=== PATIENT | female | born 1945 | race Caucasian/White ===

== ENCOUNTER 2017-08-06 12:03 | Emergency (ER) | payer MEDICARE ==
[~2017-08-06] VITALS: Ht 170.2 cm; Wt 130.0 kg
[~2017-08-06 12:03] MED LIST: AMLO5TAB22 PO; FOLBTAB4 PO; GLIM2TAB PO; LEVO175T2 PO; LISI-363 PO; MEVA40TA PO; NOVO7030P2 SQ; TIMO0.5S29 EACH EYE; VITA100018 PO
[2017-08-06 12:19] VITALS: BP 116/54; PULSE 77; RESP 16; TEMP 98.3; O2SAT 92
[2017-08-06] MEDS ORDERED: SODIUM CHLORIDE 0.9% FLUSH 10 ML FLUSH IV FLUSH PRN (12:30)
[2017-08-06 12:53] LABS: AUTOMATED NEUTROPHIL # 9.3 TH/MM3 (1.8-7.7); BASOPHIL # 0.1 TH/MM3 (0-0.2); BASOPHIL % 0.5 % (0.0-2.0); HEMATOCRIT 32.1 % (35.0-46.0); HEMOGLOBIN 10.7 GM/DL (11.6-15.3); LYMPHOCYTE # 0.7 TH/MM3 (1.0-4.8); MEAN CELL VOLUME 81.9 FL (80.0-100.0); MEAN CORPUSCULAR HEMOGLOBIN 27.3 PG (27.0-34.0); MEAN CORPUSCULAR HGB CONC 33.3 % (32.0-36.0); MEAN PLATELET VOLUME 9.1 FL (7.0-11.0); MONO % 9.2 % (0.0-8.0); NEUT % 84.3 % (16.0-70.0); PLATELET COUNT 157 TH/MM3 (150-450); RED BLOOD COUNT 3.92 MIL/MM3 (4.00-5.30); RED CELL DISTRIBUTION WIDTH 13.4 % (11.6-17.2)
[2017-08-06 13:12] LABS: ALBUMIN 2.8 GM/DL (3.4-5.0); ALT (GPT) 28 U/L (10-53); AST (GOT) 25 U/L (15-37); BICARBONATE 26.2 MEQ/L (21.0-32.0); BLOOD UREA NITROGEN 20 MG/DL (7-18); CALCIUM 8.3 MG/DL (8.5-10.1); CHLORIDE 98 MEQ/L (98-107); CREATININE 1.75 MG/DL (0.50-1.00); GLOMERULAR FILTRATION RATE 29 ML/MIN (>89); GLUCOSE,RANDOM 322 MG/DL (74-106); SODIUM (NA) 131 MEQ/L (136-145)
[2017-08-06 13:13] LABS: ALKALINE PHOSPHATASE 68 U/L (45-117); TOTAL BILIRUBIN ADULT 1.5 MG/DL (0.2-1.0)
--- NOTE | 2017-08-06 13:40 | PD ---
HPI Chief Complaint: Diabetic Time Seen by Provider: 13:07 Travel History International Travel<30 days: No Contact w/Intl Traveler<30days: No Traveled to known affect area: No History of Present Illness HPI Patient is a 72-year-old female presenting to the emergency department from a skilled facility for evaluation of generalized weakness for the last 3 days. Patient states she normally can ambulate without her walker but now she needs to use it. She reports dysuria and hesitancy for the last 3 days as well. Skilled facility since the patient's blood glucose was elevated this morning, she was given her normal insulin, it was reassessed and it was still elevated she was given additional doses of insulin. Patient denies any nausea, vomiting , abdominal pain. She does report a decreased appetite. Symptom onset was gradual, symptom severity is mild to moderate, there are no alleviating factors. Symptoms are not exacerbated by anything. PFSH Past Medical History Cancer: Yes (RIGHT BREAST) Cardiovascular Problems: Yes (MURMUR) High Cholesterol: Yes Diabetes: Yes (INSULIN DEP SLIDING SCALE ) Endocrine: Yes Hepatitis: Yes (HEPATITIS A/ MONONUCLEOSIS AGE 16) Hypertension: Yes Immune Disorder: Yes (PSORIATIC ARTHRITIS ) Musculoskeletal: Yes (PSORIATIC ARTHRITIS ) Neurologic: Yes (VERTIGO) Thyroid Disease: Yes (HYPOTHYROIDISM) Past Surgical History Abdominal Surgery: Yes (CHOLECYSTECTOMY; APPY ) Body Medical Devices: NONE Eye Surgery: Yes (RIGHT CATARACT EXTRACT.) Gynecologic Surgery: Yes (HYSTERECTOMY ) Thoracic Surgery: Yes (LUMPECTOMY RIGHT BREAST (MALIGNANT) ) Social History Tobacco Use: No Substance Use: No Allergies-Medications (Allergen,Severity, Reaction): Coded Allergies: Sulfa (Sulfonamide Antibiotics) (Unverified Allergy, Unknown, UNKNOWN CHILDHOOD REACTION, 08/06/17) celecoxib (Unverified Allergy, Unknown, KIDNEY DAMAGE, 08/06/17) codeine (Unverified Allergy, Unknown, RASH / DIZZINESS, 08/06/17) metformin (Unverified Allergy, Unknown, KIDNEY PROBLEMS, 08/06/17) nitrofurantoin (Unverified Allergy, Unknown, ALL OVER BODY RASH/WHELPS, ) povidone-iodine (Unverified Allergy, Unknown, SKIN BREAKDOWN, 08/06/17) rofecoxib (Unverified Allergy, Unknown, KIDNEY DAMAGE, 08/06/17) Uncoded Allergies: IODINE, TOPICAL (Allergy, Unknown, Rash, 11/29/13) Reported Meds & Prescriptions Reported Meds & Active Scripts Active Reported Vitamin D (Cholecalciferol) 1,000 Unit Tab 1,000 Unit PO DAILY Folbic (Folic Yvzh-Bbwuuhumfc-Lhlcfnwy) Tab 1 Tab PO DAILY Levothyroxine 175 mcg (Levothyroxine Sodium) 175 Mcg Tab 1 Tab PO DAILY Amlodipine Besylate 5 Mg Tab 5 Mg PO HS Lisinopril 20 Mg Tab 20 Mg PO HS Lovastatin 40 Mg Tab 40 Mg PO HS Novolin 70/30 (Insulin Human Isoph/Insulin Regular) 100 Units/Ml Inj 0 SQ DIRECTED PRN Sliding Scale As Directed. Glimepiride 2 Mg Tab 4 Mg PO BID Timolol Maleate 0.5 % Danae 1 Drop EACH EYE DAILY Review of Systems Except as stated in HPI: all other systems reviewed are Neg Cardiovascular: No: Chest Pain or Discomfort Respiratory: No: Shortness of Breath Gastrointestinal: No: Nausea, Vomiting, Abdominal Pain Genitourinary: Positive: Dysuria, Decreased Urinary Output, Hesitancy Neurologic: Positive: Weakness Physical Exam Narrative GENERAL: Overweight, well-developed, alert elderly female. Presenting in no acute distress. SKIN: Warm and dry. HEAD: Atraumatic. Normocephalic. EYES: Pupils equal and round. No scleral icterus. No injection or drainage. ENT: No nasal bleeding or discharge. Mucous membranes pink and moist. NECK: Trachea midline. No JVD. CARDIOVASCULAR: Regular rate and rhythm. 3/6 systolic murmur. RESPIRATORY: No accessory muscle use. Clear to auscultation. Breath sounds equal bilaterally. GASTROINTESTINAL: Abdomen soft, non-tender, nondistended. Hepatic and splenic margins not palpable. MUSCULOSKELETAL: Extremities without clubbing, cyanosis, or edema. No obvious deformities. NEUROLOGICAL: Awake and alert. No obvious cranial nerve deficits. Motor grossly within normal limits. Five out of 5 muscle strength in the arms and legs. Normal speech. PSYCHIATRIC: Appropriate mood and affect; insight and judgment normal. Data Data Last Documented VS Vital Signs Date Time Temp Pulse Resp B/P (MAP) Pulse Ox O2 Delivery O2 Flow Rate FiO2 08/06/17 16:17 77 16 143/99 (114) 95 Room Air 08/06/17 12:19 98.3 Orders Orders Complete Blood Count With Diff (08/06/17 12:18) Comprehensive Metabolic Panel (08/06/17 12:21) Urinalysis - C+S If Indicated (08/06/17 12:29) Iv Access Insert/Monitor (08/06/17 12:29) Sodium Chloride 0.9% Flush (Ns Flush) (08/06/17 12:30) Urinary Catheter Insert/Apply (08/06/17 12:29) Blood Glucose (08/06/17 12:29) Chest, Pa & Lat (08/06/17 ) Sodium Chlor 0.9% 1000 Ml Inj (Ns 1000 M (08/06/17 14:45) Insulin Human Regular Inj (Novolin R Inj (08/06/17 15:15) Levofloxacin 750 Mg Premix Inj (Levaquin (08/06/17 15:45) Albuterol-Ipratropium Neb (Duoneb Neb) (08/06/17 15:45) Lactic Acid Sepsis Protocol (08/06/17 15:48) Blood Culture (08/06/17 15:48) Labs Laboratory Tests Test 08/06/17 12:20 08/06/17 12:30 Urine Color YELLOW Urine Turbidity HAZY Urine pH 6.0 Urine Specific [place] 1.025 Urine Protein 300 mg/dL Urine Glucose (UA) 300 mg/dL Urine Ketones 10 mg/dL Urine Occult Blood MOD Urine Nitrite NEG Urine Bilirubin NEG Urine Urobilinogen LESS THAN 2.0 MG/DL Urine Leukocyte Esterase NEG Urine RBC 2 /hpf Urine WBC 1 /hpf Urine Squamous Epithelial Cells <1 /hpf Urine Amorphous Sediment RARE Urine Bacteria OCC /hpf Urine Hyaline Casts 4 /lpf Urine Mucus FEW /lpf Microscopic Urinalysis Comment CULT NOT INDICATED White Blood Count 11.0 TH/MM3 Red Blood Count 3.92 MIL/MM3 Hemoglobin 10.7 GM/DL Hematocrit 32.1 % Mean Corpuscular Volume 81.9 FL Mean Corpuscular Hemoglobin 27.3 PG Mean Corpuscular Hemoglobin Concent 33.3 % Red Cell Distribution Width 13.4 % Platelet Count 157 TH/MM3 Mean Platelet Volume 9.1 FL Neutrophils (%) (Auto) 84.3 % Lymphocytes (%) (Auto) 6.0 % Monocytes (%) (Auto) 9.2 % Eosinophils (%) (Auto) 0.0 % Basophils (%) (Auto) 0.5 % Neutrophils # (Auto) 9.3 TH/MM3 Lymphocytes # (Auto) 0.7 TH/MM3 Monocytes # (Auto) 1.0 TH/MM3 Eosinophils # (Auto) 0.0 TH/MM3 Basophils # (Auto) 0.1 TH/MM3 CBC Comment DIFF FINAL Differential Comment Blood Urea Nitrogen 20 MG/DL Creatinine 1.75 MG/DL Random Glucose 322 MG/DL Total Protein 7.0 GM/DL Albumin 2.8 GM/DL Calcium Level 8.3 MG/DL Alkaline Phosphatase 68 U/L Aspartate Amino Transf (AST/SGOT) 25 U/L Alanine Aminotransferase (ALT/SGPT) 28 U/L Total Bilirubin 1.5 MG/DL Sodium Level 131 MEQ/L Potassium Level 3.6 MEQ/L Chloride Level 98 MEQ/L Carbon Dioxide Level 26.2 MEQ/L Anion Gap 7 MEQ/L Estimat Glomerular Filtration Rate 29 ML/MIN MDM Medical Decision Making Medical Screen Exam Complete: Yes Emergency Medical Condition: Yes Medical Record Reviewed: Yes Interpretation(s) Last Impressions Chest X-Ray 08/06/17 0000 Signed Impressions: Service Date/Time: Sunday, August 06, 2017 14:48 - CONCLUSION: Focal patchy opacity within the left lung base consistent with possible pneumonia. Clinical correlation is recommended. Angel Read MD Laboratory Tests Test 08/06/17 12:20 08/06/17 12:30 Urine Color YELLOW Urine Turbidity HAZY Urine pH 6.0 Urine Specific [place] 1.025 Urine Protein 300 mg/dL Urine Glucose (UA) 300 mg/dL Urine Ketones 10 mg/dL Urine Occult Blood MOD Urine Nitrite NEG Urine Bilirubin NEG Urine Urobilinogen LESS THAN 2.0 MG/DL Urine Leukocyte Esterase NEG Urine RBC 2 /hpf Urine WBC 1 /hpf Urine Squamous Epithelial Cells <1 /hpf Urine Amorphous Sediment RARE Urine Bacteria OCC /hpf Urine Hyaline Casts 4 /lpf Urine Mucus FEW /lpf Microscopic Urinalysis Comment CULT NOT INDICATED White Blood Count 11.0 TH/MM3 Red Blood Count 3.92 MIL/MM3 Hemoglobin 10.7 GM/DL Hematocrit 32.1 % Mean Corpuscular Volume 81.9 FL Mean Corpuscular Hemoglobin 27.3 PG Mean Corpuscular Hemoglobin Concent 33.3 % Red Cell Distribution Width 13.4 % Platelet Count 157 TH/MM3 Mean Platelet Volume 9.1 FL Neutrophils (%) (Auto) 84.3 % Lymphocytes (%) (Auto) 6.0 % Monocytes (%) (Auto) 9.2 % Eosinophils (%) (Auto) 0.0 % Basophils (%) (Auto) 0.5 % Neutrophils # (Auto) 9.3 TH/MM3 Lymphocytes # (Auto) 0.7 TH/MM3 Monocytes # (Auto) 1.0 TH/MM3 Eosinophils # (Auto) 0.0 TH/MM3 Basophils # (Auto) 0.1 TH/MM3 CBC Comment DIFF FINAL Differential Comment Blood Urea Nitrogen 20 MG/DL Creatinine 1.75 MG/DL Random Glucose 322 MG/DL Total Protein 7.0 GM/DL Albumin 2.8 GM/DL Calcium Level 8.3 MG/DL Alkaline Phosphatase 68 U/L Aspartate Amino Transf (AST/SGOT) 25 U/L Alanine Aminotransferase (ALT/SGPT) 28 U/L Total Bilirubin 1.5 MG/DL Sodium Level 131 MEQ/L Potassium Level 3.6 MEQ/L Chloride Level 98 MEQ/L Carbon Dioxide Level 26.2 MEQ/L Anion Gap 7 MEQ/L Estimat Glomerular Filtration Rate 29 ML/MIN Vital Signs Date Time Temp Pulse Resp B/P (MAP) Pulse Ox O2 Delivery O2 Flow Rate FiO2 08/06/17 12:19 98.3 77 16 116/54 (49) 92 Differential Diagnosis UTI versus DKA versus hyperglycemia versus metabolic abnormality versus other Narrative Course Patient is a 72-year-old female presenting from skilled facility for elevated blood sugars as well as weakness and urinary symptoms. Patient's vital signs are stable, labs ordered and pending. CBC with no acute findings Chemistry BUN and creatinine of 20/1.75, glucose 322, sodium 131 Urinalysis is not consistent with a urinary tract infection Chest x-ray shows focal patchy opacity within the left lung base consistent with possible pneumonia. Clinical correlation is recommended. At this time patient was started on Levaquin IV, she was given 1 L of IV fluids. She has been afebrile, her vital signs are stable. Patient will be discharged back to nursing home facility on Levaquin she is to follow-up with provider at the nursing home facility. Additionally patient can return to emergency department for any new worsening symptoms. Plan of care was discussed with my attending physician. Patient stable for discharge. Diagnosis Primary Impression: Pneumonia Qualified Codes: J18.1 - Lobar pneumonia, unspecified organism Additional Impression: Hyperglycemia Referrals: Primary Care Physician 3 days Patient Instructions: Community Acquired Pneumonia (GEN), General Instructions Additional Instructions: Follow-up with your primary doctor Complete full course of antibiotics as prescribed Return to emergency department for any new or worsening symptoms Increase oral fluid intake Med/Other Pt SpecificInfo: Prescription(s) given Scripts Levofloxacin (Levaquin) 750 Mg Tablet 750 MG PO DAILY for Infection for 5 Days, #5 TAB 0 Refills Prov: Simi Camacho 08/06/17 Disposition: 03 DISCHARGE TO SNF Condition: Stable Simi Camacoh Aug 06, 2017 13:40
[2017-08-06 14:02] LABS: AMORPHOUS SEDIMENT, URINE RARE; BACTERIA, URINE OCC /hpf; BILIRUBIN, URINE NEG (NEG); BLOOD, URINE MOD (NEG); GLUCOSE,URINE 300 mg/dL (NEG); HYALINE CAST, URINE 4 /lpf (RARE); KETONE, URINE 10 mg/dL (NEG); MUCUS URINE FEW /lpf (OCC); NITRITE,URINE NEG (NEG); SQUAMOUS EPITHELIAL CELL URINE <1 /hpf (0-5); URINE COLOR YELLOW (YELLW/STRAW); URINE LEUKOCYTE ESTERASE NEG (NEG)
[2017-08-06] MEDS ORDERED: SODIUM CHLOR 0.9% 1000 ML INJ 1,000 ML IV ONE (14:45)
[2017-08-06] MEDS ORDERED: INSULIN HUMAN REGULAR 1,000 UNITS/10 ML VIAL SQ ONE (15:15)
--- NOTE | 2017-08-06 15:40 | RADRPT ---
EXAM DATE/TIME: 08/06/2017 14:48 [facility] COMPARISON: No previous studies available for comparison. INDICATIONS : Dizzy and weak. MEDICAL HISTORY : Low blood sugar. SURGICAL HISTORY : None. ENCOUNTER: Initial ACUITY: 1 day PAIN SCORE: 0/10 LOCATION: Bilateral chest FINDINGS: Focal patchy opacity is noted within the left lung base consistent with possible pneumonia. Clinical correlation is recommended. The heart is normal. The pulmonary vascular pattern is normal. Degenerati ve changes are noted throughout the thoracic spine. CONCLUSION: Focal patchy opacity within the left lung base consistent with possible pneumonia. Clinical correlati on is recommended. Angel Read MD on August 06, 2017 at 15:37 Board Certified Radiologist. This report was verified electronically.
[2017-08-06] MEDS ORDERED: LEVOFLOXACIN 750 MG PREMIX INJ 150 ML IV ONE (15:45)
[2017-08-06] MEDS ORDERED: RESP: ALBUTEROL 2.5 MG/IPRATROPIUM 0.5 MG NEB (SCH) INH ONE (15:45)
[2017-08-06 16:17] VITALS: BP 143/99; PULSE 77; RESP 16; O2SAT 95
[2017-08-06] MEDS ORDERED: LEVA750T9 PO (17:25)
== END 2017-08-06 20:03 ==
LOC: NEDAMB 12:03
DX: J18.1 Lobar pneumonia, unspecified organism (principal); E11.65 Type 2 diabetes mellitus with hyperglycemia; E03.9 Hypothyroidism, unspecified; Z79.4 Long term (current) use of insulin
CPT/HCPCS: 71046; 80053; 81001; 85025; 94664; 96361; 96372; 96374; 99284; J1815; J1956; J7030